=== PATIENT | female | born 1960 | race Caucasian/White ===

== ENCOUNTER 2017-10-01 17:18 | Emergency (ER) | payer MEDICAID ==
[~2017-10-01] VITALS: Ht 157.5 cm; Wt 62.6 kg
[2017-10-01 17:24] VITALS: Ht 157.5 cm; Wt 62.6 kg
[2017-10-01 18:20] LABS: BASOPHIL % 0.6 % (0-2); PLATELET COUNT 283 x10^3mcL (130-400)
[2017-10-01 18:21] LABS: RED CELL DISTRIBUTION WIDTH 15.3 % (11.5-14.5)
[2017-10-01 18:29] LABS: CALCIUM 8.1 mg/dL (8.5-10.1); CARBON DIOXIDE 24.8 mmol/L (21-32); CHLORIDE SERUM 103 mmol/L (98-107); CREATININE SERUM 0.9 mg/dL (0.6-1.0); GFR1 > 60 mL/min; GLUCOSE SERUM 85 mg/dL (74-106); POTASSIUM SERUM 3.8 mmol/L (3.5-5.1); SODIUM SERUM 139 mmol/L (136-145)
[2017-10-01 18:33] LABS: ALKALINE PHOSPHATASE 60 U/L (46-116); ALT/SGPT 20 U/L (14-59); AST/SGOT 17 U/L (15-37); BILIRUBIN TOTAL 0.4 mg/dL (0.20-1.00); TOTAL PROTEIN, SERUM 7.4 g/dL (6.4-8.2)
[2017-10-01 19:04] LABS: UA SPECIFIC GRAVITY >=1.030 (1.005-1.035); microscopic required? YES; urine erythrocyte 3+ (NEGATIVE)
[2017-10-01 21:32] VITALS: BP 130/80
== END 2017-10-01 21:32 | disposition home or self-care (01) ==
LOC: ED 17:18
PROVIDERS: Specialist
DX: R10.30 Lower abdominal pain, unspecified (principal); D72.829 Elevated white blood cell count, unspecified; Z98.51 Tubal ligation status
CPT/HCPCS: 36415; J1885; J3010